=== PATIENT | female | born 1995 | race Two or more races ===

== ENCOUNTER 2016-04-11 11:21 | Emergency (ER) | payer MEDICAID ==
--- NOTE | 2016-04-11 11:29 | ER Document Report ---
ED Medical Screen (RME) - General Stated Complaint: STOOL PROBLEM Mode of Arrival: Ambulatory Information source: Patient Notes: Patient complains of dysuria and urinary frequency since yesterday. Patient is currently 38 weeks . Patient complains of rectal pain and a lump to the rectal area. No abdominal pain. hx: None I have greeted and performed a rapid initial assessment of this patient. A comprehensive ED assessment and evaluation of the patient, analysis of test results and completion of the medical decision making process will be conducted by additional ED providers. TRAVEL OUTSIDE OF THE [place] IN LAST 30 DAYS: No - Related Data Allergies/Adverse Reactions: No Known Allergies Allergy (Verified 10/22/15 19:02) Past Medical History - Immunizations Immunizations up to date: Yes Hx Diphtheria, Pertussis, Tetanus Vaccination: Yes Physical Exam - General General appearance: Appears well, Alert In distress: None
[2016-04-11 12:14] LABS: APPEARANCE,URINE CLOUDY; BILIRUBIN,URINE NEGATIVE (NEGATIVE); GLUCOSE, URINE NEGATIVE (NEGATIVE); KETONES,URINE NEGATIVE (NEGATIVE); LEUKOCYTE ESTERASE,URINE TRACE (NEGATIVE); NITRITE,URINE NEGATIVE (NEGATIVE); PROTEIN,URINE 30 mg/dL (NEGATIVE); URINE SPECIFIC GRAVITY 1.016; UROBILINOGEN,URINE NEGATIVE mg/dL (<2.0)
[2016-04-11] MEDS ORDERED: NITROFURANTOIN MONOHYD/M-CRYST 100 MG CAPSULE PO ONE (13:09)
--- NOTE | 2016-04-11 13:18 | ER Document Report ---
ED General - General Chief Complaint: Pain With Urination Stated Complaint: STOOL PROBLEM Mode of Arrival: Ambulatory TRAVEL OUTSIDE OF THE [place] IN LAST 30 DAYS: No - HPI Patient complains to provider of: dysuria rectal pain Notes: Patient's coming in for evaluation of dysuria and rectal pain. Patient is approximately 38 weeks patient is a . Denies any vaginal bleeding states positive movement. Patient otherwise denies fevers chills nausea vomiting. States dysuria states that patient has a painful lump on her rectum. - Related Data Allergies/Adverse Reactions: No Known Allergies Allergy (Verified 10/22/15 19:02) Past Medical History - General Information source: Patient - Social History Smoking Status: Unknown if Ever Smoked Chew tobacco use (# tins/day): No Frequency of alcohol use: None Drug Abuse: None Family History: Reviewed & Not Pertinent Patient has suicidal ideation: No Patient has homicidal ideation: No Renal/ Medical History: Denies: Hx Peritoneal Dialysis Surgical Hx: Negative - Immunizations Immunizations up to date: Yes Hx Diphtheria, Pertussis, Tetanus Vaccination: Yes Review of Systems - Review of Systems Constitutional: No symptoms reported EENT: No symptoms reported Cardiovascular: No symptoms reported Respiratory: No symptoms reported Gastrointestinal: No symptoms reported, Other - Rectal pain Genitourinary: Dysuria Female Genitourinary: No symptoms reported Musculoskeletal: No symptoms reported Skin: No symptoms reported Hematologic/Lymphatic: No symptoms reported Neurological/Psychological: No symptoms reported -: Yes All other systems reviewed and negative Physical Exam - Vital signs Vitals: Temp Pulse Resp BP Pulse Ox 97.8 F 89 16 142/94 H 98 04/11/16 11:30 04/11/16 11:30 04/11/16 11:30 04/11/16 11:30 04/11/16 11:30 Interpretation: Normal - General General appearance: Appears well, Alert - HEENT Head: Normocephalic, Atraumatic Eyes: Normal Pupils: PERRL - Respiratory Respiratory status: No respiratory distress Chest status: Nontender Breath sounds: Normal Chest palpation: Normal - Cardiovascular Rhythm: Regular Heart sounds: Normal auscultation Murmur: No - Abdominal Inspection: Normal Distension: No distension Bowel sounds: Normal Tenderness: Nontender Organomegaly: No organomegaly - Rectal Hemorrhoids: External - Patient with a large external hemorrhoid is tender to palpation - Back Back: Normal, Nontender - Extremities General upper extremity: Normal inspection, Nontender, Normal color, Normal ROM , Normal temperature General lower extremity: Normal inspection, Nontender, Normal color, Normal ROM , Normal temperature, Normal weight bearing. No: Deon's sign - Neurological Neuro grossly intact: Yes Cognition: Normal Orientation: AAOx4 Abi Coma Scale Eye Opening: Spontaneous Abi Coma Scale Verbal: Oriented [place] Coma Scale Motor: Obeys Commands [place] Coma Scale Total: 15 Speech: Normal Motor strength normal: LUE, RUE, LLE, RLE Sensory: Normal - Psychological Associated symptoms: Normal affect, Normal mood - Skin Skin Temperature: Warm Skin Moisture: Dry Skin Color: Normal Course - Re-evaluation Re-evalutation: 04/11/16 15:01 Patient with signs of bacteria and is with dysuria will go ahead and treat patient with Macrobid. Patient also will be giving medications for her her hemorrhoid. Patient will be discharged home. - Vital Signs Vital signs: Temp Pulse Resp BP Pulse Ox 98.1 F 86 18 140/82 H 99 04/11/16 13:24 04/11/16 13:24 04/11/16 13:24 04/11/16 13:24 04/11/16 13:24 - Laboratory Laboratory results interpreted by me: 04/11/16 11:46 Urine Protein 30 H Ur Leukocyte Esterase TRACE H Discharge - Discharge Clinical Impression: Acute hemorrhoid UTI (urinary tract infection) Qualifiers: Urinary tract infection type: site unspecified Hematuria presence: without hematuria Qualified Code(s): N39.0 - Urinary tract infection, site not specified Condition: Stable Disposition: HOME, SELF-CARE Instructions: Nitrofurantoin ([facility]), Urinary Tract Infection ([facility]), Hemorrhoids ([facility]) Additional Instructions: Use the cream as directed. Return to the ER symptoms worsen. Prescriptions: Lidocaine [Recticare] 15 gm TP Q6 #1 cream..g. Nitrofurantoin/Nitrofuran Mac [Macrobid 100 mg Capsule] 1 tab PO BID #14 capsule Pramoxine HCl/Mineral Oil/Znox [Tucks Hemorrhoidal Ointment] 28.3 gm RC Q6 #1 oint..gm. Forms: Return to Work
[2016-04-11 13:25] VITALS: BP 140/82
== END 2016-04-11 13:25 | disposition home or self-care (01) ==
LOC: ER 11:21
DX: O23.43 Unspecified infection of urinary tract in pregnancy, third trimester (principal); N39.0 Urinary tract infection, site not specified; O22.43 Hemorrhoids in pregnancy, third trimester; K62.89 Other specified diseases of anus and rectum; Z3A.38 38 weeks gestation of pregnancy
CPT/HCPCS: 99283; 81001; J3490; J8499